=== PATIENT | male | born 1965 | race Caucasian/White ===

== ENCOUNTER 2019-01-17 11:53 | Day surgery (SDC) | payer BC ==
[~2019-01-17] VITALS: Ht 177.8 cm; Wt 94.1 kg
[~2019-01-17 11:53] MED LIST: HYDACE5 PO; RXHYDACE PO; TOBR.3OPSO OD; TOBR.3OPSO OP
== END 2019-01-17 13:55 | disposition home or self-care (01) ==
LOC: ORSCSDS 11:53
PROVIDERS: Internal Medicine Gastroenterology
PROC: 0DBN8ZX Excision of Sigmoid Colon, Via Natural or Artificial Opening Endoscopic, Diagnostic (ICD-10-PCS; principal; 2019-01-17 13:00)
PROC: 0DBM8ZX Excision of Descending Colon, Via Natural or Artificial Opening Endoscopic, Diagnostic (ICD-10-PCS; principal; 2019-01-17 13:00)
DX: Z12.11 Encounter for screening for malignant neoplasm of colon (principal); D12.5 Benign neoplasm of sigmoid colon; D12.4 Benign neoplasm of descending colon; K57.30 Diverticulosis of large intestine without perforation or abscess without bleeding; K76.0 Fatty (change of) liver, not elsewhere classified; G47.33 Obstructive sleep apnea (adult) (pediatric); J45.909 Unspecified asthma, uncomplicated; Z87.891 Personal history of nicotine dependence
CPT/HCPCS: 88305; J1980; J7120

== ENCOUNTER 2020-10-15 09:20 | Day surgery (SDC) | payer BC ==
[~2020-10-15] VITALS: Ht 175.3 cm; Wt 102.6 kg
--- NOTE | 2020-10-15 11:15 | NUR ---
10/15/20 1115 Eileen Aleman EPI 1MG ADDED TO THE FIRST BAG OF LR FOR IRRIGATION
--- NOTE | 2020-10-15 12:48 | NUR ---
10/15/20 1248 Kimber Newell 1200 DELAYED ENTRY RECIEVED REPORT FROM [facility]. PT C/O 06/09 PAIN AND DESCRIBES IT LIKE SOMEONE HIT HIM WITH A BAT. PT MEDICATED WITH IV FENTANYL AND PO MEDICATION PER ORDERS. PT PLEASANT, RELAXED IN RECLINER. PT EXPRESSES READINESS TO GO HOME. PT STATES PAIN IS TOLERABLE. DC INSTRUCTIONS PROVIDED TO PT. BRIEFLY WENT OVER IMPORTANT POINTS WITH OUT IN CAR DUE TO RESTRICTED VISITOR POLICY.
== END 2020-10-15 12:38 | disposition home or self-care (01) ==
LOC: ORSCSDS 09:20
PROVIDERS: Orthopaedic Surgery
PROC: 0SBC4ZZ Excision of Right Knee Joint, Percutaneous Endoscopic Approach (ICD-10-PCS; principal; 2020-10-15 10:30)
DX: S83.241A Other tear of medial meniscus, current injury, right knee, initial encounter (principal); M94.261 Chondromalacia, right knee; G47.33 Obstructive sleep apnea (adult) (pediatric); J45.909 Unspecified asthma, uncomplicated; E66.9 Obesity, unspecified; Z68.33 Body mass index [BMI] 33.0-33.9, adult
CPT/HCPCS: 82947; J0171; J0690; J1100; J1885; J2250; J2405; J2704; J3010; J7120

== ENCOUNTER 2021-03-20 01:47 | Emergency (ER) | payer BC ==
[~2021-03-20] VITALS: Ht 175.3 cm; Wt 97.5 kg
[2021-03-20] MEDS ORDERED: IBUP200 PO (02:15)
[2021-03-20] MEDS ORDERED: ACET500 PO (02:16)
[2021-03-20] MEDS ORDERED: HYDR1TAB94 PO (03:28)
== END 2021-03-20 04:02 | disposition home or self-care (01) ==
LOC: ER 01:47
DX: S22.42XA Multiple fractures of ribs, left side, initial encounter for closed fracture (principal); S93.401A Sprain of unspecified ligament of right ankle, initial encounter; Z87.891 Personal history of nicotine dependence; V86.56XA Driver of dirt bike or motor/cross bike injured in nontraffic accident, initial encounter
CPT/HCPCS: 71101; 73610; 96372; 99283-25; A9270; J1885